=== PATIENT | female | born 1975 | race Caucasian/White ===

== ENCOUNTER 2016-12-15 18:20 | Emergency (ER) | payer MEDICAID ==
--- NOTE | 2016-12-15 19:05 | Emergency Department Record ---
History of Present Illness - General Chief Complaint: Back Pain/Injury Stated Complaint: BACK PAIN Time Seen by Provider: 12/15/16 19:04 Source: Patient Mode of Arrival: Ambulatory Limitations: No limitations - History of Present Illness Initial Comments: The patient is here due to worsening of her chronic back pain. She has had pain for over a year. Now for the last 2-3 weeks the pain is much worse. She denies any radiation of the pain down the legs but states she is having trouble walking due to the pain. She also denies any bowel or bladder incontinence. She did see her PCP today and then since she did not get any pain relief she decided to come over to the ER. MD Complaint: Back pain Onset/Timin -: Week(s) Similar Symptoms Previously: Yes Place: Home Radiation: None Severity: Severe Severity scale (1-10): 9 Quality: Sharp Consistency: Constant Improves With: None Worsens With: Walking Context: Unknown Associated Symptoms: Denies other symptoms - Related Data Home Medications Medication Instructions Recorded Confirmed Last Taken Budesonide/Formoterol Fumarate 1 puff IH DAILY 12/15/16 12/15/16 Unknown [Symbicort 160-4.5 Mcg Inhaler] Lamotrigine [Lamotrigine] 25 mg PO DAILY 12/15/16 12/15/16 Unknown Pregabalin [Lyrica] 150 mg PO DAILY 12/15/16 12/15/16 Unknown Tiotropium [place] [Spiriva] 1 puff IH DAILY 12/15/16 12/15/16 Unknown Previous Rx's Medication Instructions Recorded Cyclobenzaprine HCl [Flexeril] 10 mg PO TID #20 tablet 12/15/16 Naproxen [Naprosyn] 250 mg PO BID #14 tablet 12/15/16 Allergies Allergy/AdvReac Type Severity Reaction Status Date / Time bupropion HCl Allergy Intermediate HIVES Unverified 12/14/16 11:50 [From Wellbutrin] cephalexin monohydrate Allergy Intermediate ITCHING Unverified 12/14/16 11:50 [From Keflex] morphine Allergy Intermediate ANAPHYLAXIS Unverified 12/14/16 11:50 sulfamethoxazole Allergy Intermediate ANAPHYLAXIS Unverified 12/14/16 11:50 [From Bactrim] trimethoprim [From Bactrim] Allergy Intermediate ANAPHYLAXIS Unverified 11:50 Travel Screening - Travel/Exposure Within Last 30 Days Have you traveled within the last 30 days?: No Review of Systems Constitutional: Denies: Chills, Fever Eyes: Denies: Eye discharge ENT: Denies: Congestion Respiratory: Denies: Cough, Dyspnea Past Medical History - SOCIAL HISTORY Smoking Status: Former smoker Alcohol Use: None Drug Use: None - RESPIRATORY Hx Respiratory Disorders: Yes Hx COPD: Yes - CARDIOVASCULAR Hx Cardio Disorders: Yes Hx Chest Pain: Yes Hx Hypotension: Yes Comment:: murmur - NEURO Hx Neuro Disorders: Yes Hx Headaches: Yes 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 - GI Hx GI Disorders: Yes Hx Diverticulitis: Yes Hx Irritable Bowel: Yes Hx Liver Disease: Yes (3 large masses in liver) - Hx Genitourinary Disorders: Yes Hx Kidney Stones: Yes Hx UTI: Yes - ENDOCRINE Hx Endocrine Disorders: No - MUSCULOSKELETAL Hx Musculoskeletal Disorders: Yes - PSYCH Hx Psych Problems: Yes Hx Anxiety: Yes Hx Depression: Yes - HEMATOLOGY/ONCOLOGY Hx Hematology/Oncology Disorders: Yes Hx Bruising: Yes Family Medical History Any Significant Family History?: Yes Family Hx Comment (NOT TO BE USED IN PLACE OF ITEMS BELOW): Mom- RA Physical Exam - General General Appearance: Alert, Oriented x3, Cooperative, No acute distress - Head Head exam: Atraumatic, Normocephalic, Normal inspection - Eye Eye exam: Normal appearance, PERRL - Neck Neck exam: Normal inspection, Full ROM. negative: Tenderness - Respiratory Respiratory exam: Normal lung sounds bilaterally. negative: Respiratory distress - Cardiovascular Cardiovascular Exam: Regular rate, Normal rhythm, Normal heart sounds - GI/Abdominal GI/Abdominal exam: Soft, Normal bowel sounds. negative: Tenderness - Rectal Rectal exam: Normal rectal tone. negative: Decreased rectal tone - Extremities Extremities exam: Normal inspection, Full ROM, Normal capillary refill. negative: Tenderness - Back Back exam: Reports: Normal inspection, Paraspinal tenderness (Over the entire lumbar spine.), Vertebral tenderness, Other (Neg SLR bilaterally.) - Neurological Neurological exam: Alert, Oriented X3, Reflexes normal (The patellar and achilles reflexes are 2+ bilaterally.). negative: Altered, Motor sensory deficit Course Vital Signs 12/15/16 18:27 Temperature 97.7 F Pulse Rate 86 Respiratory 22 Rate Blood Pressure 113/80 Pulse Ox 98 - Reevaluation(s) Reevaluation #1: The patient was doing better after the pain medicines but was still complaining of back pain. She stated she rolled over in bed and felt a "pop" in her back and felt that there was bone on bone pain. I re-examined her back and it was still diffusely tender which is chronic per the patient. She was able to get up and walk and again denies any incontinence or sacral numbness. I explained to her that due to her extensive hx I did recommend obtaining an MRI tonight and did recommend traveling to her hospital of choice to get it done. She is refusing the transfer. I explained to her by NOT getting the MRI tonight she could end up with chronic leg numbness, weakness, trouble walking, urinary or bowel incontinence, and sexual dysfunction. The patient has proper decision making capacity and is refusing the transfer. She would like to see her chronic pain doctor tomorrow for further evaluation. I explained to her we could not be held liable for NOT ordering the test and she understands and will return to the ER if she changes her mind or worsens. 12/15/16 20:27 12/15/16 20:27 Medical Decision Making - Data Complexity MDM Data: X-Ray Ordered and/or Reviewed - Radiology Data Radiology results: Report reviewed (Lumbar films: No acute bony abnormality) Disposition Disposition: Discharge Clinical Impression: Chronic back pain Qualifiers: Back pain location: low back pain Back pain laterality: unspecified Sciatica presence: unspecified whether sciatica present Qualified Code(s): M54.5 - Low back pain Disposition: Home, Self-Care Condition: (1) Good Instructions: Chronic Back Pain (ED) Additional Instructions: Please see your pain doctor tomorrow for further evaluation. Please take the pain medicines as directed. Please return to the ER for any increasing pain, fever, leg numbness, weakness or any bowel or bladder issues. Prescriptions: Cyclobenzaprine HCl [Flexeril] 10 mg PO TID #20 tablet Naproxen [Naprosyn] 250 mg PO BID #14 tablet Forms: Patient Portal Access Time of Disposition: 20:13
[2016-12-15] MEDS ORDERED: KETOROLAC 30 MG/ML VIAL IM ONE (19:11)
[2016-12-15] MEDS ORDERED: ORPHENADRINE CITRATE 60MG/2ML VIAL IM ONE (19:11)
== END 2016-12-15 20:26 | disposition home or self-care (01) ==
LOC: ER 18:20
DX: G89.29 Other chronic pain (principal); M54.5 Low back pain
CPT/HCPCS: 99283 ×2; 96372; 72110; J1885; J2360

== ENCOUNTER 2018-01-15 09:50 | Day surgery (SDC) | payer MEDICAID ==
[2018-01-15] MEDS ORDERED: MIDAZOLAM HCL 2MG/2ML VIAL IV ONE (09:51)
[2018-01-15] MEDS ORDERED: LIDOCAINE 2% MDV (20MG/ML) 20ML VIAL IV ONE (09:51)
[2018-01-15] MEDS ORDERED: FENTANYL PF 100MCG/2ML VIAL IV ONE (09:51)
[2018-01-15] MEDS ORDERED: PROPOFOL 10 MG/ML VIAL IV ONE (09:51)
--- NOTE | 2018-01-16 13:10 | Operative Note ---
DATE OF SURGERY: 01/15/2018 OPERATION: ESOPHAGOGASTRODUODENOSCOPY with multiple biopsies. INDICATION: Regurgitation after eating. It is not clear if this is true gastroesophageal reflux or perhaps sinus drainage or pulmonary etiology for her "phlegm in her throat." Upper endoscopy is performed at this time for further evaluation. She denies any dysphagia. There is no history of ulcerative disease. ANESTHESIA: Intravenous sedation was administered by the department of anesthesiology and included Diprivan titrated to effect. PROCEDURE: Following informed consent from this alert individual, including a discussion of the risks and benefits of the procedure and an opportunity for the patient to ask questions, the patient was in the left lateral decubitus position. The Olympus [id number] video endoscope was inserted into the esophagus without resistance. The proximal esophagus had a normal appearance with normal folds and distensibility. The distal esophagus as well was free from changes. The squamocolumnar junction approximated the diaphragmatic hiatus. It was smooth and well defined. The stomach was entered. The gastric fundus and pars media had a normal appearance with normal folds and distensibility. The antrum evaluated circumferentially demonstrated focal areas of erythema and multiple biopsies were taken from the antrum and proximal stomach. The pylorus was symmetrical and patent. The duodenal bulb, sweep and descending duodenum were examined in a serial fashion and found to be normal. The endoscope was then withdrawn back into the body of the stomach, where retroflexion accomplished following air insufflation failed to demonstrate any proximal gastric abnormalities. As mentioned, the endoscope was then straightened and biopsies were taken from the stomach. The endoscope was then withdrawn through a normal esophagus and removed from the patient. The patient tolerated the procedure well and was returned to the recovery area in stable condition. IMPRESSION: Mild erythema focally in the antrum of the stomach. Biopsies taken. Otherwise unremarkable endoscopy. RECOMMENDATION: Further recommendations will be forthcoming pending results of biopsy obtained today. The patient might be dealing with sinus drainage. She has signs of costochondritis, she claims. She will also be arranged to have a surveillance colonoscopy for history of colon polyps. Followup will be with JS Stevens. As always, thank you for allowing me to participate in the care of your patient. CC: JS Stevens
== END 2018-01-15 12:17 | disposition home or self-care (01) ==
LOC: HOP 09:50
PROVIDERS: ATTEND Internal Medicine Gastroenterology
DX: K31.9 Disease of stomach and duodenum, unspecified (principal); R11.10 Vomiting, unspecified; E03.9 Hypothyroidism, unspecified; M06.9 Rheumatoid arthritis, unspecified; F32.89 Other specified depressive episodes; K21.9 Gastro-esophageal reflux disease without esophagitis
CPT/HCPCS: 43239; 00731; J3010

== ENCOUNTER 2018-01-24 10:33 | Emergency (ER) | payer MEDICAID ==
[2018-01-24] MEDS ORDERED: FAMOTIDINE IV 20 MG in 0.9 % SODIUM CHLORIDE 100ML 50 ML IVPB ONE (10:55)
[2018-01-24] MEDS ORDERED: 0.9 % SODIUM CHLORIDE 1,000 ML BAG IV ONE ×2 (10:55→12:26)
[2018-01-24] MEDS ORDERED: ONDANSETRON HCL IV 4 MG/2 ML VIAL IV ONE (10:55)
--- NOTE | 2018-01-24 11:01 | Emergency Department Record ---
History of Present Illness - General Chief complaint: Vomiting Stated complaint: VOMITING Time Seen by Provider: 01/24/18 10:45 Source: Patient Mode of Arrival: Ambulatory Limitations: No limitations - History of Present Illness Initial comments: 42 yo female presents with one week of diarrhea, nausea, and vomiting. The onset was the day after she had an EGD at [facility]. She developed non bloody watery stools. This has persisted. She developed nausea and vomiting 2 days later. She states she has had chills and sweats but no fever. No rash. She has acid reflux with brash taste in the mouth. No cough, chest pain or shortness of breath. PCP is Cartwright. NOLASCO complaint: Diarrhea, Nausea, Vomiting Onset/Timin -: Week(s) (1) Description of Vomiting: Bilious, Watery Description of Diarrhea: Water Associated Abdominal Pain: No Radiation: None Severity: Moderate Severity scale (1-10): 8 Quality: Aching Consistency: Constant Improves with: None Worsens with: None Context: Other Associated Symptoms: Headaches, Nausea/vomiting - Related Data Previous Rx's Medication Instructions Recorded Ondansetron [Zofran Odt] 4 mg PO Q8H #20 tab.rapdis 01/24/18 Ranitidine HCl [Zantac] 150 mg PO DAILY #20 tab 01/24/18 Allergies Allergy/AdvReac Type Severity Reaction Status Date / Time bupropion HCl Allergy Intermediate HIVES Unverified 01/04/18 09:57 [From Wellbutrin] cephalexin monohydrate Allergy Intermediate ITCHING Unverified 01/04/18 09:57 [From Keflex] morphine Allergy Intermediate ANAPHYLAXIS Unverified 01/04/18 09:57 sulfamethoxazole Allergy Intermediate ANAPHYLAXIS Unverified 01/04/18 09:57 [From Bactrim] trimethoprim [From Bactrim] Allergy Intermediate ANAPHYLAXIS Unverified 09:57 Travel Screening - Travel/Exposure Within Last 30 Days Have you traveled within the last 30 days?: No Review of Systems Constitutional: Reports: Chills, Malaise, Weakness. Denies: Fever Eyes: Denies: Eye discharge, Eye pain, Photophobia, Vision change ENT: Denies: Congestion, Throat pain Respiratory: Denies: Cough, Dyspnea, Hemoptysis, Stridor, Wheezes Cardiovascular: Denies: Chest pain, Palpitations, Syncope Endocrine: Reports: Fatigue. Denies: Polydipsia, Polyuria Gastrointestinal: Reports: As per HPI, Abdominal pain, Diarrhea, Nausea, Vomiting. Denies: Constipation, Hematemesis, Hematochezia, Melena Genitourinary: Denies: Dysuria, Urgency Musculoskeletal: Reports: Myalgia. Denies: Arthralgia, Back pain, Joint swelling Skin: Denies: Bruising, Change in color, Rash Neurological: Reports: Headache (migraines). 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 - GI Hx GI Disorders: Yes Hx Abdominal Pain: Yes Hx Diverticulitis: Yes Hx Reflux: Yes (occ and also phlegm) Hx Irritable Bowel: Yes Hx Liver Disease: Yes (3 large masses in liver) Hx Nausea/Vomiting: Yes - Hx Genitourinary Disorders: Yes Hx Bladder Problem: Yes (incontinece at times and with coughing) Hx Kidney Stones: Yes Hx UTI: Yes Comment:: hysterectomy - ENDOCRINE Hx Endocrine Disorders: No Hx Thyroid Disease: Yes - MUSCULOSKELETAL Hx Musculoskeletal Disorders: Yes Hx Arthritis: Yes Hx Fibromyalgia: Yes - PSYCH Hx Psych Problems: Yes Hx Anxiety: Yes Hx Depression: Yes Comment:: bipolar, PTSD - HEMATOLOGY/ONCOLOGY Hx Hematology/Oncology Disorders: Yes Hx Anemia: Yes (hx) Hx Bruising: Yes Family Medical History Any Significant Family History?: Yes Family Hx Comment (NOT TO BE USED IN PLACE OF ITEMS BELOW): Mom- RA Hx Dementia: Grandparents *Heart Comment: aunt Hx Stroke: Grandparents *Stroke Comment: aunt Physical Exam - General General Appearance: Alert, Oriented x3, Cooperative, No acute distress Limitations: No limitations - Head Head exam: Atraumatic, Normal inspection - Eye Eye exam: Normal appearance. negative: Conjunctival injection, Scleral icterus - ENT ENT exam: Normal exam, Mucous membranes moist, Normal orophraynx. negative: Mucous membranes dry Ear exam: Normal external inspection Nasal Exam: Normal inspection Mouth exam: Normal external inspection Teeth exam: Normal inspection Throat exam: Normal inspection - Neck Neck exam: Normal inspection, Full ROM. negative: Tenderness - Respiratory Respiratory exam: Normal lung sounds bilaterally. negative: Respiratory distress - Cardiovascular Cardiovascular Exam: Regular rate, Normal rhythm, Normal heart sounds - GI/Abdominal GI/Abdominal exam: Soft. negative: Distended, Guarding, Rebound, Rigid, Tenderness - Rectal Rectal exam: Deferred - exam: Deferred - Extremities Extremities exam: Normal inspection, Full ROM, Normal capillary refill. negative: Pedal edema, Tenderness - Back Back exam: Reports: Normal inspection, Full ROM. Denies: CVA tenderness (R), CVA tenderness (L), Muscle spasm, Rash noted, Tenderness - Neurological Neurological exam: Alert, Normal gait, Oriented X3, Reflexes normal - Psychiatric Psychiatric exam: Normal affect, Normal mood. negative: Agitated, Anxious - Skin Skin exam: Dry, Intact, Normal color, Warm Course Vital Signs 01/24/18 10:43 Temperature 97.6 F Pulse Rate 71 Respiratory 18 Rate Blood Pressure 131/83 Pulse Ox 100 - Reevaluation(s) Reevaluation #1: 01/24/18 11:00 EMR reviewed EGD reviewed. Mild gastritis noted. 01/24/18 11:00 The pathology on the EGD was negative 01/24/18 11:01 The vitals are normal range 01/24/18 11:39 The CBC was reviewed No acute changes The UA was reviewed. No signs of infection or blood 01/24/18 13:25 The patient is resting comfortably She is still on her 2nd liter of IVF No diarrhea or vomiting to this point in the ED visit She will be rechecked when fluids are finished. 01/24/18 14:22 The IVF are finished. No diarrhea The patient will be given an outpatient stool studies Rx We discussed home care, reasons to return to the ED for a recheck. Medical Decision Making - Lab Data Result diagrams: 01/24/18 11:24 01/24/18 11:24 Disposition Disposition: Discharge Clinical Impression: Diarrhea, Vomiting Disposition: Home, Self-Care Condition: (1) Good Instructions: Dehydration (ED), Acute Nausea and Vomiting (ED), Acute Diarrhea (ED) Additional Instructions: Rest and try to stay well hydrated Call your family doctor for a recheck this week Return in 1-2 days if not improved and sooner if worse Take the stool (diarrhea) sample to the lab once it is collected Prescriptions: Ondansetron [Zofran Odt] 4 mg PO Q8H #20 tab.rapdis Ranitidine HCl [Zantac] 150 mg PO DAILY #20 tab Forms: Patient Portal Access Time of Disposition: 14:25 Quality - Quality Measures Quality Measures: Headache - Headache: Neuroimaging Quality Measure: Measure #419: Overuse of Neuroimaging ICD10 Codes Entered: Yes Neurological Exam: Patient had a normal neurological exam. [G9535] Headache: Use of Neuroimaging: < CTA, CT, MRA or MRI was NOT ordered > [G9534] - Blood Pressure Screening Does Patient Have Any of the Following: No Blood Pressure Classification: Pre-Hypertensive BP Reading Systolic Measurement: 131 Diastolic Measurement: 83 Screening for High Blood Pressure: < Pre-Hypertensive BP, F/U Documented > [ G8950] Pre-Hypertensive Follow-up Interventions: Referral to alternative/primary care provider.
[2018-01-24 11:31] LABS: URINE BILIRUBIN SMALL (NEGATIVE); URINE BLOOD NEGATIVE (NEGATIVE); URINE COLOR YELLOW; URINE GLUCOSE (UA) NEGATIVE (NEGATIVE); URINE KETONE TRACE (NEGATIVE); URINE LEUKOCYTE ESTERASE NEGATIVE (NEGATIVE); URINE NITRITE NEGATIVE (NEGATIVE); URINE PROTEIN TRACE (NEGATIVE); URINE UROBILINOGEN 0.2 E.U./dL (0.20 - 1.00)
[2018-01-24 11:33] LABS: BASO % 0.4 % (0-6); EOS % 1.2 % (0-6); GRAN % 62.1 % (47-80); HEMATOCRIT 42.8 % (35.0-47.0); LYMPH % 25.3 % (16-45); MEAN CELL VOLUME 86.1 fl (81-97); MEAN CORPUSCULAR HEMOGLOBIN 30.2 pg (27-33); MEAN PLATELET VOLUME 9.6 fl (7.4-10.4); PLATELET COUNT 208 K/uL (130-400); RED BLOOD COUNT 4.97 M/uL (3.80-5.40); RED CELL DISTRIBUTION WIDTH 12.8 % (11.5-14.5); WHITE BLOOD COUNT W/O DIFF 5.1 K/uL (4.2-12.2)
[2018-01-24 11:35] LABS: HCG,QUALITATIVE URINE NEGATIVE (NEGATIVE)
[2018-01-24 11:45] LABS: URINE AMORPHOUS SEDIMENT 2+; URINE APPEARANCE SL CLOUDY; URINE BACTERIA FEW; URINE RBC 0 - 2 (NONE SEEN); URINE SQUAMOUS EPITHELIAL CELL 0 - 2 /hpf; URINE WBC 0 - 2 (0-2/hpf)
[2018-01-24 11:47] LABS: BLOOD UREA NITROGEN 21 mg/dL (6-20); CREATININE 0.7 mg/dL (0.5-0.9); EST GLOMERULAR FILTRATION RATE > 60 mL/min; TOTAL PROTEIN 7.3 g/dL (6.6-8.7)
[2018-01-24 11:49] LABS: GLUCOSE,RANDOM 103 mg/dL (74-109)
[2018-01-24 11:52] LABS: ALB/GLOB RATIO 1.7 (1.1-1.8); ALBUMIN 4.6 g/dL (4.0-5.0); ALKALINE PHOSPHATASE 96 U/L (35-104); ALT/SGPT 43 U/L (<33); AST/SGOT 29 U/L (10.0-35.0); LIPASE 29 U/L (13-60)
[2018-01-24] MEDS ORDERED: PROMETHAZINE HCL 12.5 MG in 0.9 % SODIUM CHLORIDE 100ML 100 ML IVPB ONE (12:28)
== END 2018-01-24 14:40 | disposition home or self-care (01) ==
LOC: ER 10:33
DX: R11.2 Nausea with vomiting, unspecified (principal); R19.7 Diarrhea, unspecified; R51 Headache; J44.9 Chronic obstructive pulmonary disease, unspecified; I95.9 Hypotension, unspecified; Z87.891 Personal history of nicotine dependence
CPT/HCPCS: 99284 ×2; 96374; 96375; 83690; 85025; 80053; 81001; 81025; J3490; J2405; J2550; J7030

== ENCOUNTER 2018-01-25 12:03 | Observation (INO) | payer MEDICAID ==
--- NOTE | 2018-01-25 12:10 | Emergency Department Record ---
History of Present Illness - General Chief complaint: Vomiting Stated complaint: VOMITING Time Seen by Provider: 01/25/18 12:05 Source: Patient Mode of Arrival: Ambulatory Limitations: No limitations - History of Present Illness Initial comments: 42 yo female presents with nausea, vomiting and diarrhea for about one week. No fevers or chills. No blood in the vomit of stools. She was seen in the ED yesterday. She had lab work and IVF. No vomiting or diarrhea yesterday during her time in the ED. She went home last night and tried to eat a banana. She became nauseated and vomited. She one episode of loose watery diarrhea at that time. She feels weak, dizzy, nauseated. She has not had any significant PO intake since discharge. She denies any abdominal pain. She was given an outpatient RX for stool studies for her one week of diarrhea but was unable to collect any with her diarrhea last night. PCP is Lydia Dillard. MD complaint: Diarrhea, Nausea, Vomiting -: Week(s) (1) Description of Vomiting: Watery Description of Diarrhea: Water Location: Diffuse Severity: Moderate Quality: Cramping Consistency: Constant Improves with: None Worsens with: Eating Associated Symptoms: Loss of appetite, Nausea/vomiting - Related Data Home Medications Medication Instructions Recorded Confirmed Last Taken Dicyclomine HCl 10 mg PO BID 01/25/18 01/25/18 Unknown Lamotrigine 150 mg PO BID 01/25/18 01/25/18 Unknown Previous Rx's Medication Instructions Recorded Ranitidine HCl [Zantac] 150 mg PO DAILY #20 tab 01/24/18 Lamotrigine [Lamictal] 100 mg PO DAILY tablet 01/26/18 Levothyroxine Sodium [Synthroid] 50 mcg PO DAILYTHY tablet 01/26/18 Venlafaxine HCl [Effexor Xr] 150 mg PO QD #30 cap 01/26/18 Venlafaxine HCl [Venlafaxine HCl 75 mg PO DAILY #6 tab.er.24 01/26/18 ER] Allergies Allergy/AdvReac Type Severity Reaction Status Date / Time bupropion HCl Allergy Intermediate HIVES Verified 01/25/18 12:04 [From Wellbutrin] cephalexin monohydrate Allergy Intermediate ITCHING Verified 01/25/18 12:04 [From Keflex] morphine Allergy Intermediate ANAPHYLAXIS Verified 01/25/18 12:04 sulfamethoxazole Allergy Intermediate ANAPHYLAXIS Verified 01/25/18 12:04 [From Bactrim] trimethoprim [From Bactrim] Allergy Intermediate ANAPHYLAXIS Verified 01/25/18 12:04 Review of Systems Constitutional: Reports: Chills, Malaise, Weakness Eyes: Denies: Eye discharge, Eye pain, Photophobia, Vision change ENT: Denies: Congestion, Throat pain Respiratory: Denies: Cough, Dyspnea, Hemoptysis, Stridor, Wheezes Cardiovascular: Denies: Chest pain, Syncope Endocrine: Reports: Fatigue Gastrointestinal: Reports: Abdominal pain, Diarrhea, Nausea, Vomiting. Denies: Constipation, Hematemesis, Hematochezia, Melena Genitourinary: Denies: Dysuria, Urgency Musculoskeletal: Denies: Arthralgia, Back pain, Myalgia Skin: Denies: Bruising, Change in color, Rash Neurological: Reports: Weakness. 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 - GI Hx GI Disorders: Yes Hx Abdominal Pain: Yes Hx Diverticulitis: Yes Hx Reflux: Yes (occ and also phlegm) Hx Irritable Bowel: Yes Hx Liver Disease: Yes (3 large masses in liver) Hx Nausea/Vomiting: Yes - Hx Genitourinary Disorders: Yes Hx Bladder Problem: Yes (incontinece at times and with coughing) Hx Kidney Stones: Yes Hx UTI: Yes Comment:: hysterectomy - ENDOCRINE Hx Endocrine Disorders: No Hx Thyroid Disease: Yes - MUSCULOSKELETAL Hx Musculoskeletal Disorders: Yes Hx Arthritis: Yes Hx Fibromyalgia: Yes - PSYCH Hx Psych Problems: Yes Hx Anxiety: Yes Hx Depression: Yes Comment:: bipolar, PTSD - HEMATOLOGY/ONCOLOGY Hx Hematology/Oncology Disorders: Yes Hx Anemia: Yes (hx) Hx Bruising: Yes Family Medical History Family Hx Comment (NOT TO BE USED IN PLACE OF ITEMS BELOW): Mom- RA Hx Dementia: Grandparents *Heart Comment: aunt Hx Stroke: Grandparents *Stroke Comment: aunt Physical Exam - General General Appearance: Alert, Oriented x3, Cooperative, No acute distress Limitations: No limitations - Head Head exam: Normal inspection - Eye Eye exam: Normal appearance, PERRL. negative: Conjunctival injection, Scleral icterus - ENT ENT exam: Normal exam, Mucous membranes moist, Normal orophraynx Ear exam: Normal external inspection Nasal Exam: Normal inspection Mouth exam: Normal external inspection Teeth exam: Normal inspection Throat exam: Normal inspection - Neck Neck exam: Normal inspection, Full ROM. negative: Tenderness - Respiratory Respiratory exam: Normal lung sounds bilaterally. negative: Respiratory distress - Cardiovascular Cardiovascular Exam: Regular rate, Normal rhythm, Normal heart sounds - GI/Abdominal GI/Abdominal exam: Soft. negative: Diminished bowel sounds, Distended, Guarding , Hernia, Rebound, Rigid, Tenderness (non tender, very soft) - Rectal Rectal exam: Deferred - exam: Deferred - Extremities Extremities exam: Normal inspection, Full ROM, Normal capillary refill. negative: Tenderness - Back Back exam: Reports: Normal inspection. Denies: CVA tenderness (R), CVA tenderness (L) - Neurological Neurological exam: Alert, Normal gait, Oriented X3 - Psychiatric Psychiatric exam: Normal affect, Normal mood - Skin Skin exam: Dry, Intact, Normal color, Warm Course - Reevaluation(s) Reevaluation #1: EMR reviewed from yesterday's ED visit 01/25/18 12:09 01/25/18 13:20 The CBC was reviewed. No acute changes. Medical Decision Making - Lab Data Result diagrams: 01/25/18 13:00 01/25/18 13:00 Disposition Disposition: Admit Clinical Impression: Vomiting Qualifiers: Vomiting type: unspecified Vomiting Intractability: intractable Nausea presence : with nausea Qualified Code(s): R11.2 - Nausea with vomiting, unspecified Diarrhea Qualifiers: Diarrhea type: unspecified type Qualified Code(s): R19.7 - Diarrhea, unspecified Disposition: Still a Patient at [facility] Decision to Admit: Admit from ER Decision to Admit Date: 01/25/18 Decision to Admit Time: 10:00 Condition: (2) Stable Time of Disposition: 10:00 Quality - Quality Measures Quality Measures: N/A - Blood Pressure Screening Does Patient Have Any of the Following: No Blood Pressure Classification: Normal BP Reading Systolic Measurement: 118 Diastolic Measurement: 66 Screening for High Blood Pressure: < Normal BP, F/U Not Required > [G9238]
[2018-01-25] MEDS ORDERED: 0.9 % SODIUM CHLORIDE 1,000 ML BAG IV ONE (12:20)
[2018-01-25] MEDS ORDERED: PROMETHAZINE HCL 25 MG/ML VIAL IVP ONE (12:20)
[2018-01-25 13:15] LABS: BASO % 0.4 % (0-6); HEMATOCRIT 42.5 % (35.0-47.0); HEMOGLOBIN 14.8 gm/dl (11.6-16.0); LYMPH % 30.8 % (16-45); MEAN CELL VOLUME 86.6 fl (81-97); MEAN CORPUSCULAR HEMOGLOBIN 30.1 pg (27-33); MEAN CORPUSCULAR HGB CONC 34.8 g/dl (32-36); MEAN PLATELET VOLUME 10.1 fl (7.4-10.4); MONO % 9.8 % (0-9); PLATELET COUNT 223 K/uL (130-400); RED BLOOD COUNT 4.91 M/uL (3.80-5.40); RED CELL DISTRIBUTION WIDTH 12.6 % (11.5-14.5)
[2018-01-25 13:26] LABS: BLOOD UREA NITROGEN 15 mg/dL (6-20); CREATININE 0.6 mg/dL (0.5-0.9); EST GLOMERULAR FILTRATION RATE > 60 mL/min
[2018-01-25 13:27] LABS: TOTAL PROTEIN 7.2 g/dL (6.6-8.7)
[2018-01-25 13:29] LABS: GLUCOSE,RANDOM 91 mg/dL (74-109)
[2018-01-25 13:31] LABS: ALT/SGPT 43 U/L (<33); AST/SGOT 30 U/L (10.0-35.0)
[2018-01-25 13:32] LABS: ALB/GLOB RATIO 1.6 (1.1-1.8); ALBUMIN 4.4 g/dL (4.0-5.0); ALKALINE PHOSPHATASE 91 U/L (35-104); LIPASE 28 U/L (13-60)
[2018-01-25] MEDS ORDERED: ACETAMINOPHEN 500 MG TABLET PO PRN (14:10)
[2018-01-25] MEDS ORDERED: PROMETHAZINE HCL 12.5 MG in 0.9 % SODIUM CHLORIDE 100ML 100 ML IVPB PRN (14:10)
[2018-01-25] MEDS ORDERED: POTASSIUM CHLORIDE/D5-0.9%NACL 20 MEQ/1,000 ML BAG IV ONE (14:10)
[2018-01-25] MEDS ORDERED: PROCHLORPERAZINE 10 MG/2 ML VIAL IVP PRN (14:37)
[2018-01-25] MEDS ORDERED: PANTOPRAZOLE SODIUM IV 40 MG VIAL IVP ONE (14:45)
--- NOTE | 2018-01-25 15:03 | History & Physical ---
History of Present Illness - Date of Service Date of Service for History & Physical: 01/25/18 - History of Present Illness Admitting Diagnosis: vomiting and diarrhea History of Present Illness: 42 yo female presents for admission from ED after 2 visits to ED from N/V and now has diarrhea. PMH bipolar, PTSD, hypothyroidism, GERD, and endoscope unremarkable. Pre Admit- pt was seen in ED yesterday for N/V, given stool culture orders and zofran for nausea. Returned today for continued N/V/D and reports that the zofran was not helping. ED -BP 134/75, HR 74, RR22, temp 98.4F, O2 100%. - NA 141, K. 3.7, Cl 101, BUN 15, creatinine 0.6, GFR >60, AST30/ALT43, alk phos 91, riymio31, WBC 5, Hgb 14.8, Hct 42.5, Plt 223 -1 L IVF, 12.5mg Phenergan IVP, 40mg IVP protonix -stool cultures ordered but not yet collected -admitted for N/V 01/25/18 Pt admitted for N/V, rehydrate, and observation. Pt is able to perform ADLs, sitting EOB, ambulates with steady gait in room. PCP JS Farooq Specialist: Jose [facility] Travel Screening - Travel/Exposure Within Last 30 Days Have you traveled within the last 30 days?: No Review of Systems Constitutional: Reports: Chills, Malaise, Weakness Eyes: Denies: Eye discharge, Eye pain, Photophobia, Vision change ENT: Denies: Congestion, Throat pain Respiratory: Denies: Cough, Dyspnea, Hemoptysis, Stridor, Wheezes Cardiovascular: Denies: Chest pain, Syncope Endocrine: Reports: Fatigue Gastrointestinal: Reports: Abdominal pain, Diarrhea, Nausea, Vomiting. Denies: Constipation, Hematemesis, Hematochezia, Melena Genitourinary: Denies: Dysuria, Urgency Musculoskeletal: Denies: Arthralgia, Back pain, Myalgia Skin: Denies: Bruising, Change in color, Rash Neurological: Reports: Weakness. 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 - GI Hx GI Disorders: Yes Hx Abdominal Pain: Yes Hx Diverticulitis: Yes Hx Reflux: Yes (occ and also phlegm) Hx Irritable Bowel: Yes Hx Liver Disease: Yes (3 large masses in liver) Hx Nausea/Vomiting: Yes - Hx Genitourinary Disorders: Yes Hx Bladder Problem: Yes (incontinece at times and with coughing) Hx Kidney Stones: Yes Hx UTI: Yes Comment:: hysterectomy - ENDOCRINE Hx Endocrine Disorders: No Hx Thyroid Disease: Yes - MUSCULOSKELETAL Hx Musculoskeletal Disorders: Yes Hx Arthritis: Yes Hx Fibromyalgia: Yes - PSYCH Hx Psych Problems: Yes Hx Anxiety: Yes Hx Depression: Yes Comment:: bipolar, PTSD - HEMATOLOGY/ONCOLOGY Hx Hematology/Oncology Disorders: Yes Hx Anemia: Yes (hx) Hx Bruising: Yes Family Medical History Family Hx Comment (NOT TO BE USED IN PLACE OF ITEMS BELOW): Mom- RA Hx Dementia: Grandparents *Heart Comment: aunt Hx Stroke: Grandparents *Stroke Comment: aunt H&P Meds/Allergies - Allergies Allergies: Allergies Allergy/AdvReac Type Severity Reaction Status Date / Time bupropion HCl Allergy Intermediate HIVES Verified 01/25/18 12:04 [From Wellbutrin] cephalexin monohydrate Allergy Intermediate ITCHING Verified 01/25/18 12:04 [From Keflex] morphine Allergy Intermediate ANAPHYLAXIS Verified 01/25/18 12:04 sulfamethoxazole Allergy Intermediate ANAPHYLAXIS Verified 01/25/18 12:04 [From Bactrim] trimethoprim [From Bactrim] Allergy Intermediate ANAPHYLAXIS Verified 01/25/18 12:04 - Home Medications Home Medications Medication Instructions Recorded Confirmed Last Taken Dicyclomine HCl 10 mg PO BID 01/25/18 01/25/18 Unknown Lamotrigine [Lamotrigine] 150 mg PO BID 01/25/18 01/25/18 Unknown Previous Rx's Medication Instructions Recorded Ranitidine HCl [Zantac] 150 mg PO DAILY #20 tab 01/24/18 - Active Medications Active Medications: Current Medications Acetaminophen (Tylenol 500mg Tab) 500 mg PO Q6H PRN PRN Reason: PAIN/TEMP Potassium Chloride/Dextrose/Sod Cl () 20 meq in 1,000 mls @ 125 mls/hr IV NOW ONE Stop: 01/25/18 22:09 Last Admin: 01/25/18 14:21 Dose: 125 mls/hr Ondansetron HCl (Zofran) 4 mg IVP Q4H PRN PRN Reason: NAUSEA Pantoprazole Sodium (Protonix Iv) 40 mg IV DAILY ALEXSANDRA Prochlorperazine Edisylate (Compazine) 5 mg IVP Q4H PRN PRN Reason: NAUSEA NOT RELIEVED BY ZOFRAN Physical Exam - Vital Signs Vital Signs: Vital Signs - Last 24 Hrs Temp Pulse Pulse Resp BP BP Pulse Ox 01/25/18 14:10 97.6 F 66 18 148/88 100 01/25/18 13:56 68 16 118/66 100 - General General Appearance: Alert, Oriented x3, Cooperative, No acute distress Limitations: No limitations - Head Head exam: Normal inspection - Eye Eye exam: Normal appearance, PERRL. negative: Conjunctival injection, Scleral icterus - ENT ENT exam: Normal exam, Mucous membranes moist, Normal orophraynx Ear exam: Normal external inspection Nasal Exam: Normal inspection Mouth exam: Normal external inspection Teeth exam: Normal inspection Throat exam: Normal inspection - Neck Neck exam: Normal inspection, Full ROM. negative: Tenderness - Respiratory Respiratory exam: Normal lung sounds bilaterally. negative: Respiratory distress - Cardiovascular Cardiovascular Exam: Regular rate, Normal rhythm, Normal heart sounds Peripheral Pulses: 2+: Radial (R), Radial (L), Dorsalis Pedis (R), Dorsalis Pedis (L) - GI/Abdominal GI/Abdominal exam: Soft. negative: Diminished bowel sounds, Distended, Guarding , Hernia, Rebound, Rigid, Tenderness (non tender, very soft) - Rectal Rectal exam: Deferred - exam: Deferred - Extremities Extremities exam: Normal inspection, Full ROM, Normal capillary refill. negative: Tenderness - Back Back exam: Reports: Normal inspection. Denies: CVA tenderness (R), CVA tenderness (L) - Neurological Neurological exam: Alert, Normal gait, Oriented X3 - Psychiatric Psychiatric exam: Normal affect, Normal mood - Skin Skin exam: Dry, Intact, Normal color, Warm Results - Labs Result Diagrams: 01/25/18 13:00 01/25/18 13:00 VTE H&P Assessment - Risk for VTE Risk for VTE: Yes Risk Level: Moderate (decreased actvity) Risk Assessment Date: 01/25/18 Risk Assessment Time: 16:05 VTE Orders Placed or Will Be Placed: Yes Plan - Detailed Diagnosis and Plan (1) Vomiting Current Visit: Yes Status: Acute Qualifiers: Vomiting Intractability: intractable Nausea presence: with nausea Base Code: R11.10 - VOMITING, UNSPECIFIED Priority: High Onset Date: ~ Comment: 01/25/18 - pt seen in ER two days in a row, second visit admitted to inpt for hydration -labs WNL, K 3.7 and supplemented with IVF via ER orders -off home meds x 1 week per pt report -POC nausea meds, IVP, advance diet as tolerated -D/C plan 01/26/18 with controlled N/V -stool cultures pending (2) Diarrhea Current Visit: Yes Status: Acute Qualifiers: Diarrhea type: unspecified type Qualified Code(s): R19.7 - Diarrhea, unspecified Base Code: R19.7 - DIARRHEA, UNSPECIFIED Onset Date: ~01/24/18 Comment: 01/25 -watery diarrhea started yesterday after 1 week n/v -stool cultures ordered by ED- pending collection -POC maintain hydration -Advance diet as tolerated (3) Full code status Current Visit: Yes Status: Acute Base Code: Z78.9 - OTHER SPECIFIED HEALTH STATUS
[2018-01-25 17:44] LABS: CRYPTOSPORIDIUM PARVUM ANTIGEN NOT DETECTED (NOT DETECT); GIARDIA LAMBLIA ANTIGEN NOT DETECTED (NOT DETECT); ROTOVIRUS NOT DETECTED (NOT DETECT)
[2018-01-25 18:33] LABS: MOLECULAR C DIFF TOXIN SCREEN NOT DETECTED (NOT DETECT)
[2018-01-25] MEDS: ONDANSETRON HCL IV 4 MG/2 ML VIAL IVP PRN (18:53)
[2018-01-26] MEDS: ONDANSETRON HCL IV 4 MG/2 ML VIAL IVP PRN (07:40)
--- NOTE | 2018-01-26 08:50 | Discharge Summary ---
Providers Discharge Summary Date: 01/26/18 Date of admission: 01/25/18 13:47 Expected Date of Discharge: 01/26/18 Attending physician: SONYA YEBOAH Primary care physician: ALEXANDR ADAN Consults: Consult Orders 01/25/18 19:17 Consult - Case Management Now Comment: Reason For Exam: Pt states she is homeless Physical Exam - Vital Signs Vital Signs: Vital Signs - Last 24 Hrs Temp Pulse Pulse Resp BP BP BP 01/26/18 07:49 70 16 01/26/18 07:21 98.1 F 73 16 117/79 01/25/18 22:10 97.9 F 61 18 95/59 01/25/18 21:00 61 18 01/25/18 16:22 66 18 01/25/18 15:38 66 18 01/25/18 14:10 97.6 F 66 18 148/88 01/25/18 13:56 68 16 118/66 Pulse Ox 01/26/18 07:49 01/26/18 07:21 100 01/25/18 22:10 99 01/25/18 21:00 01/25/18 16:22 01/25/18 15:38 01/25/18 14:10 100 01/25/18 13:56 100 - General General Appearance: Alert, Oriented x3, Cooperative, No acute distress Limitations: No limitations - Head Head exam: Normal inspection - Eye Eye exam: Normal appearance, PERRL. negative: Conjunctival injection, Scleral icterus - ENT ENT exam: Normal exam, Mucous membranes moist, Normal orophraynx Ear exam: Normal external inspection Nasal Exam: Normal inspection Mouth exam: Normal external inspection Teeth exam: Normal inspection Throat exam: Normal inspection - Neck Neck exam: Normal inspection, Full ROM. negative: Tenderness - Respiratory Respiratory exam: Normal lung sounds bilaterally. negative: Respiratory distress - Cardiovascular Cardiovascular Exam: Regular rate, Normal rhythm, Normal heart sounds Peripheral Pulses: 2+: Radial (R), Radial (L), Dorsalis Pedis (R), Dorsalis Pedis (L) - GI/Abdominal GI/Abdominal exam: Soft. negative: Diminished bowel sounds, Distended, Guarding , Hernia, Rebound, Rigid, Tenderness (non tender, very soft) - Rectal Rectal exam: Deferred - exam: Deferred - Extremities Extremities exam: Normal inspection, Full ROM, Normal capillary refill. negative: Tenderness - Back Back exam: Reports: Normal inspection. Denies: CVA tenderness (R), CVA tenderness (L) - Neurological Neurological exam: Alert, Normal gait, Oriented X3 - Psychiatric Psychiatric exam: Normal affect, Normal mood - Skin Skin exam: Dry, Intact, Normal color, Warm Hospitalization - Hospitalization Admission Diagnosis: vomiting and diarrhea - Problem List/Discharge Diagnosis (1) Vomiting Current Visit: Yes Status: Acute Discharge Diagnosis: Vomiting Intractability: intractable Nausea presence: with nausea Base Code: R11.10 - VOMITING, UNSPECIFIED Diagnosis Priority: Primary Onset Date: ~01/18/18 Comment: 01/25/18 - pt seen in ER two days in a row, second visit admitted to inpt for hydration -labs WNL, K 3.7 and supplemented with IVF via ER orders -off home meds x 1 week per pt report -POC nausea meds, IVP, advance diet as tolerated 01/26/18 -pt is tolerating PO -eating small amts of food and tolerating with no vomiting but some nausea -negative labs, negative stool- D/C today -D/C plan 01/26/18 with controlled N/V -stool cultures pending (2) Diarrhea Current Visit: Yes Status: Acute Discharge Diagnosis: Diarrhea type: unspecified type Qualified Code(s): R19.7 - Diarrhea, unspecified Base Code: R19.7 - DIARRHEA, UNSPECIFIED Onset Date: ~01/24/18 Comment: 01/25 -watery diarrhea started yesterday after 1 week n/v -stool cultures ordered by ED- pending collection -POC maintain hydration -Advance diet as tolerated 01/26/18 -stool cultures are negative -tolerating PO -diet advanced slowly but tolerating at this time (3) Full code status Current Visit: Yes Status: Acute Base Code: Z78.9 - OTHER SPECIFIED HEALTH STATUS Comment: 01/26/18 continue full code status - Disposition Pt to discharge home today. Has social issues concerning chronic homelessness but pt is living with an aunt. D/C plan to control nausea with compazine from home medications. Start back on your home medications but take your Effexor (venlafaxine) 75mg for 1 week and then back to 150mg daily as prescribed by your providers. Resume your regular activities as tolerated. Continue to drink plenty of fluids and continue on a soft diet until regular diet is tolerated. Follow up with your primary provider in 1-2 weeks. - Hospitalization Course Disposition: Home, Self-Care Hospital Course: 42 yo female presents for admission from ED after 2 visits to ED from N/V and now has diarrhea. PMH bipolar, PTSD, hypothyroidism, GERD, and endoscope unremarkable. Pre Admit- pt was seen in ED yesterday for N/V, given stool culture orders and zofran for nausea. Returned today for continued N/V/D and reports that the zofran was not helping. ED -BP 134/75, HR 74, RR22, temp 98.4F, O2 100%. - NA 141, K. 3.7, Cl 101, BUN 15, creatinine 0.6, GFR >60, AST30/ALT43, alk phos 91, jrdrcy53, WBC 5, Hgb 14.8, Hct 42.5, Plt 223 -1 L IVF, 12.5mg Phenergan IVP, 40mg IVP protonix -stool cultures ordered but not yet collected -admitted for N/V 01/25/18 Pt admitted for N/V, rehydrate, and observation. Pt is able to perform ADLs, sitting EOB, ambulates with steady gait in room. 01/26/18 pt is tolerating PO and small amts of food. medicated for nausea this AM and again during breakfast but no vomiting. Skin PWD, MMM, a&ox3. Plan for d/c today. PCP JS Farooq Specialist: Jose [facility] Condition at Discharge: (2) Stable Discharge Diagnosis: Gastroenteritis Discharge Medications - Discharge Medications Prescriptions: Venlafaxine HCl [Venlafaxine HCl ER] 75 mg PO DAILY #6 tab.er.[email or web address] Home Medications: Ambulatory Orders Pregabalin [Lyrica] 150 mg PO BID cap 01/11/17 [Last Taken Unknown] Hydroxychloroquine Sulfate 200 mg PO BID #60 tab 01/04/18 [Last Taken Unknown] Ranitidine HCl [Zantac] 150 mg PO DAILY #20 tab 01/24/18 [Last Taken Unknown] Dicyclomine HCl 10 mg PO BID 01/25/18 [Last Taken Unknown] Lamotrigine 150 mg PO BID 01/25/18 [Last Taken Unknown] Lamotrigine [Lamictal] 100 mg PO DAILY tablet 01/26/18 [Last Taken Unknown] Levothyroxine Sodium [Synthroid] 50 mcg PO DAILYTHY tablet 01/26/18 [Last Taken Unknown] Venlafaxine HCl [Effexor Xr] 150 mg PO QD #30 cap 01/26/18 [Last Taken Unknown] Venlafaxine HCl [Venlafaxine HCl ER] 75 mg PO DAILY #6 tab.er.24 01/26/18 [Last Taken Unknown] Discharge Plan - Discharge Instructions Activity at Discharge: Resume Usual Activities As Tolerated Diet at Discharge: Advance to Usual Diet Quality Measures - Quality Measures Quality Measures: Documentation of Current Medications in Medical Record, Screening for High Blood Pressure and F/U Documented - Current Medications Quality Measure: Measure #130: Documentation of Current Medications Documentation of Current Medications: <Current Medications Documented/Reviewed> [G8427] - Blood Pressure Screening Quality Measure: Screening for High Blood Pressure and Follow-Up Documented Does Patient Have Any of the Following: Active Dx of HTN Blood Pressure Classification: Normal BP Reading Systolic Measurement: 118 Diastolic Measurement: 66 Screening for High Blood Pressure: Patient Exclusion, Hx of HTN [G9744] - Elder Abuse Suspicion Index EASI Reference Information: Nenita DOMÍNGUEZ, Radha C, Batool D, Joann M.Development and validation of a tool to assist physicians identification of elder abuse: The Elder Abuse Suspicion Index (EASI ). Journal of Elder Abuse and Neglect, 2008; 20 (3): 276-300.
[2018-01-26] MEDS ORDERED: LEVOTHYROXINE SODIUM 50 MCG TABLET PO SCH (09:15)
[2018-01-26] MEDS ORDERED: PATIENT OWN MED: LEVOTHYROXINE 50 MCG PO SCH (09:45)
[2018-01-26] MEDS ORDERED: LAMOTRIGINE 100 MG PO SCH (10:00)
[2018-01-26] MEDS ORDERED: PANTOPRAZOLE SODIUM IV 40 MG VIAL IV SCH (10:00)
[2018-01-26] MEDS ORDERED: VENLAFAXINE ER 75 MG CAPSULE PO SCH (10:00)
[2018-01-26] MEDS ORDERED: LAMOTRIGINE 100 MG TABLET PO SCH ×2 (10:00)
[2018-01-26] MEDS ORDERED: ENOXAPARIN 40 MG/0.4 ML SYR SQ SCH (10:00)
== END 2018-01-26 10:55 | disposition home or self-care (01) ==
LOC: ER 12:03 → MEDSURG 13:47
PROVIDERS: ADMIT Internal Medicine; ATTEND Internal Medicine
DX: R11.2 Nausea with vomiting, unspecified (principal); R19.7 Diarrhea, unspecified; J44.9 Chronic obstructive pulmonary disease, unspecified; I95.9 Hypotension, unspecified; E03.9 Hypothyroidism, unspecified; M79.7 Fibromyalgia; M19.90 Unspecified osteoarthritis, unspecified site; F31.9 Bipolar disorder, unspecified; F43.10 Post-traumatic stress disorder, unspecified; F41.8 Other specified anxiety disorders; K76.9 Liver disease, unspecified; Z87.891 Personal history of nicotine dependence
CPT/HCPCS: 99285 ×2; 96374; 83690; 87329; 85025; 80053; 89055; 87425; 82272; 87493; G0378 ×2; J2405 ×2; 99217; 99220; C9113; J1650; J2550; J3480; J7030

== ENCOUNTER 2019-04-12 19:36 | Emergency (ER) | payer MEDICARE, MEDICAID ==
[2019-04-12] MEDS ORDERED: DIAZEPAM (VALIUM) 5MG/ML **10ML VIAL IVP ONE (20:11)
[2019-04-12] MEDS ORDERED: HYDROMORPHONE HCL 2 MG/ML VIAL IVP ONE (20:11)
[2019-04-12] MEDS ORDERED: ONDANSETRON HCL IV 4 MG/2 ML VIAL IVP ONE (20:11)
[2019-04-12] MEDS ORDERED: 0.9 % SODIUM CHLORIDE 1000ML 1,000 ML IV SCH (20:15)
--- NOTE | 2019-04-12 20:20 | Emergency Department Record ---
History of Present Illness - General Chief Complaint: Back Pain/Injury Stated Complaint: BACK PAIN Time Seen by Provider: 04/12/19 20:11 Source: Patient Mode of Arrival: Wheelchair Limitations: No limitations - History of Present Illness Initial Comments: 43 yo female presents to ED for evaluation of severe low back pain symptoms associated with weakness of left lower extremity. Patient reports history of scoliosis and degenerative disc disease, reports that she has been participating in PT for her back however reports that her most recent session did not work her lower back. Patient denies injury, fevers, chills, or urinary symptoms. Patient takes Naprosyn and Voltaren at her baseline. MD Complaint: Back pain Onset/Timin -: Days(s) Similar Symptoms Previously: No Place: Home Radiation: Left leg Severity: Severe Quality: Burning Consistency: Constant Improves With: None Worsens With: None Associated Symptoms: Difficulty urinating, Difficulty walking, Weakness - Related Data Allergies Allergy/AdvReac Type Severity Reaction Status Date / Time bupropion HCl Allergy Intermediate HIVES Unverified 04/02/19 09:24 [From Wellbutrin] cephalexin monohydrate Allergy Intermediate ITCHING Unverified 04/02/19 09:24 [From Keflex] morphine Allergy Intermediate ANAPHYLAXIS Unverified 04/02/19 09:24 sulfamethoxazole Allergy Intermediate ANAPHYLAXIS Unverified 04/02/19 09:24 [From Bactrim] trimethoprim [From Bactrim] Allergy Intermediate ANAPHYLAXIS Unverified 04/02/19 09:24 amoxicillin trihydrate AdvReac Severe nausea Unverified 04/02/19 09:24 [From Augmentin] potassium clavulanate AdvReac Severe nausea Unverified 04/02/19 09:24 [From Augmentin] Review of Systems Constitutional: Denies: Chills, Fever, Malaise, Night sweats Eyes: Denies: Eye discharge, Eye pain ENT: Denies: Congestion, Ear pain, Epistaxis Respiratory: Denies: Cough, Dyspnea Cardiovascular: Denies: Chest pain, Dyspnea on exertion Endocrine: Denies: Fatigue, Heat or cold intolerance Gastrointestinal: Denies: Abdominal pain, Nausea, Vomiting Genitourinary: Reports: Incontinence. 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 - GI Hx GI Disorders: Yes Hx Abdominal Pain: Yes Hx Diverticulitis: Yes Hx Reflux: Yes (occ and also phlegm) Hx Irritable Bowel: Yes Hx Liver Disease: Yes (3 large masses in liver) Hx Nausea/Vomiting: Yes - Hx Genitourinary Disorders: Yes Hx Bladder Problem: Yes (incontinece at times and with coughing) Hx Kidney Stones: Yes Hx UTI: Yes Comment:: hysterectomy - ENDOCRINE Hx Endocrine Disorders: No Hx Thyroid Disease: Yes - MUSCULOSKELETAL Hx Musculoskeletal Disorders: Yes Hx Arthritis: Yes Hx Fibromyalgia: Yes - PSYCH Hx Psych Problems: Yes Hx Anxiety: Yes Hx Depression: Yes Comment:: bipolar, PTSD - HEMATOLOGY/ONCOLOGY Hx Hematology/Oncology Disorders: Yes Hx Anemia: Yes (hx) Hx Bruising: Yes Family Medical History Family Hx Comment (NOT TO BE USED IN PLACE OF ITEMS BELOW): Mom- RA Hx Dementia: Grandparents *Heart Comment: aunt Hx Stroke: Grandparents *Stroke Comment: aunt Physical Exam - General General Appearance: Alert, Oriented x3, Cooperative, Severe distress (Due to pain) Limitations: No limitations - Head Head exam: Atraumatic, Normocephalic, Normal inspection Head exam detail: negative: Abrasion, Contusion, Braden's sign, General tenderness, Hematoma, Laceration - Eye Eye exam: Normal appearance. negative: Conjunctival injection, Periorbital swelling, Periorbital tenderness, Scleral icterus - ENT Ear exam: negative: Auricular hematoma, Auricular trauma Nasal Exam: negative: Active bleeding, Discharge, Dried blood, Foreign body Mouth exam: negative: Drooling, Laceration, Muffled voice, Tongue elevation - Neck Neck exam: Normal inspection. negative: Meningismus, Tenderness - Respiratory Respiratory exam: Normal lung sounds bilaterally. negative: Rales, Respiratory distress, Rhonchi, Stridor - Cardiovascular Cardiovascular Exam: Normal rhythm, Normal heart sounds, Tachycardia - GI/Abdominal GI/Abdominal exam: Soft. negative: Rebound, Rigid, Tenderness - Rectal Rectal exam: Deferred - exam: Deferred - Extremities Extremities exam: Normal inspection. negative: Pedal edema, Tenderness - Back Back exam: Reports: CVA tenderness (L) (lumabr region), Paraspinal tenderness. Denies: CVA tenderness (R) - Neurological Neurological exam: Alert, Motor sensory deficit, Oriented X3, Other (EHL/Dorsiflexion/plantar flexion 3/5 strength left lower extremity compared with 5/5 RLE.) - Psychiatric Psychiatric exam: Normal affect, Normal mood - Skin Skin exam: Normal color. negative: Abrasion Type of lesion: negative: abrasion Course Vital Signs 04/12/19 19:53 Temperature 98.7 F Pulse Rate [ 112 H Left] Respiratory 20 Rate Blood Pressure 109/87 [Left Arm] Pulse Ox 96 - Reevaluation(s) Reevaluation #1: 04/12/19 20:25 Case was discussed with Dr. Virgen and Dr. Fox, will accept the patient for MRI and further evaluation. Patient updated on the plan for transfer re: possible cauda equina symptoms. Disposition Disposition: Transfer Clinical Impression: Lower extremity weakness Qualifiers: Laterality: left Qualified Code(s): R29.898 - Other symptoms and signs involving the musculoskeletal system Back pain Qualifiers: Back pain location: low back pain Chronicity: acute Back pain laterality: left Sciatica presence: with sciatica Sciatica laterality: sciatica of left side Qualified Code(s): M54.42 - Lumbago with sciatica, left side Disposition: Acute Care Hospital [facility]: MRI lumbar spine Accepting Physician: Param Time Discussed w/Accepting Physician: 20:25 Condition: (2) Stable Time of Disposition: 20:25 Quality - Quality Measures Quality Measures: N/A - Blood Pressure Screening Does Patient Have Any of the Following: No Blood Pressure Classification: Pre-Hypertensive BP Reading Systolic Measurement: 109 Diastolic Measurement: 87 Screening for High Blood Pressure: < Pre-Hypertensive BP, F/U Documented > [G8950] Pre-Hypertensive Follow-up Interventions: Referral to alternative/primary care provider.
== END 2019-04-12 22:03 | disposition short-term general hospital (02) ==
LOC: ER 19:36
DX: M54.42 Lumbago with sciatica, left side (principal); R29.898 Other symptoms and signs involving the musculoskeletal system; J44.9 Chronic obstructive pulmonary disease, unspecified; Z87.891 Personal history of nicotine dependence
CPT/HCPCS: 99285 ×2; 96374; 96375; J2405; J1170; J3360; J7030